=== PATIENT | male | born 1950 | race Caucasian/White ===

== ENCOUNTER → 2023-12-18 | Outpatient (CLI) | payer MEDICARE, OTHER ==
[~2023-12-18] MED LIST: Iohexol 300 - 100 ML VIAL IV ONE; NS 100 ML IV SCH
== END ==
LOC: COL.RAD 12:48
DX: C25.0 Malignant neoplasm of head of pancreas (principal); C78.1 Secondary malignant neoplasm of mediastinum; R91.1 Solitary pulmonary nodule
CPT/HCPCS: Q9967

== ENCOUNTER 2024-01-02 13:22 | Day surgery (SDC) | payer MEDICARE, OTHER ==
[~2024-01-02] VITALS: Ht 162.6 cm; Wt 50.8 kg
[~2024-01-02 13:22] MED LIST changes: -Iohexol 300 - 100 ML VIAL IV ONE; +LR 1,000 ML IV SCH; -NS 100 ML IV SCH; +Ondansetron 4 MG/2 ML VIAL IV PRN
--- NOTE | 2024-01-02 13:30 | NUR ---
PATIENT ADMITTED AMBULATORY TO [facility] AND IS ALERT AND ORIENTED. VOICES UNDERSTANDING OF PROCEDURE AND CONSENT SIGNED. STATES THAT HE JUST CAME FROM GETTING CHEMO PUMP TAKEN OFF AND PORT A CATH WAS LEFT ACCESSED TO BE USED FOR IVF DURING THIS PROCEDURE. DR. BRADLEY WAS INFORMED OF RECENT CHEMO INFUSION. HE WILL CHECK HIS NOTES TO IDENTIFY WAS CHEMO AGENT IS BEING USED PRIOR TO DOING PROCEDURE. 1345 WILL CONTINUE WITH PROCEDURE PER DR. BRADLEY AFTER REVIEWING MEDICATION THAT PATIENT IS RECEIVING AND JUST USE STANDARD PRECAUTIONS. IVF OF LR CONNECTED TO PORT AND GOOD BLOOD RETURN WAS NOTED.
[2024-01-02] MEDS ORDERED: fentaNYL 50 MCG/ML 2 ML VIAL ONE (14:08)
[2024-01-02] MEDS ORDERED: Lidocaine PF 2% (20 MG/ML) 5 ML VIAL ONE (14:08)
[2024-01-02] MEDS ORDERED: JARDIANCE10 PO (14:25)
[2024-01-02] MEDS ORDERED: LIPITOR20 MG PO (14:25)
[2024-01-02] MEDS ORDERED: OMEGA-3 FISH1000 MG PO (14:26)
[2024-01-02] MEDS ORDERED: VISION PLUS LU1 EACH PO (14:27)
[2024-01-02] MEDS ORDERED: MULTI VITAMINS1 TAB PO (14:27)
[2024-01-02] MEDS ORDERED: B-12 500 MCG PO (14:28)
[2024-01-02] MEDS ORDERED: PRILOSEC10 MG PO (14:29)
[2024-01-02] MEDS ORDERED: SENNA-LAX8.6 MG PO (14:29)
--- NOTE | 2024-01-02 14:40 | NUR ---
PATIENT RETURNS TO [facility] PER CART AND TRANSFERS WITH TWO PERSON ASSIST FROM CART TO RECLINER. IVF INFUSING. ALERT AND DENIES PAIN OR NAUSEA. VS 114/73-80-14-95% RA SATS, TEMP 98.0. CALL LIGHT IN REACH. REQUESTS COFFEE TO DRINK AND GIVEN. INFORMED PATIENT HE NEEDS TO FOLLOW FULL LIQUID DIET. REQUESTS PUDDING AND GIVEN. 1455 111/70-76-95% ON RA. DR. BRADLEY IN THE ROOM AND TALKS WITH THE PATIENT RE: FINGDING OF TODAY'S EGD. PATIENT VOICES UNDERSTANDING. WAS TOLD REPORT WILL BE SENT TO DR. MEDEROS FOR ANY FURTHER RECOMMENDTATIONS AND REFERRAL BACK TO [facility] IF NEEDED. 1510 114/71-81-96%. CONTINUES TO SIP ON COFFEE AND EAT PUDDING. WILL CONTACT SON WHEN PATIENT IS READY FOR DISCHARGE. 1520 PORT A CATH DEACCESSED AFTER BEING FLUSED WITH 10ML NS AND 500UNITS OF HEPARIN. BANDAID APPLIED TO SITE. 1530 ASSISTED PAIIENT WITH DRESSING. DISMISSAL INSTRUCTIONS GIVEN AND PATIENT VOICES UNDERSTANDING OF THESE. PROVIDED HANDOUT FOR FULL LIQUID DIET. 1533 PATIENT TAKEN TO PRIVATE VEHICLE DRIVEN BY SON PER WHEELCHAIR AND ASSISTED INTO CAR BY DEBORAH DAILEY WITH DISMISSAL INSTRUCTIONS IN HAND.
[2024-01-02 15:59] VITALS: BP 112/80; PULSE 74; TEMP 97.8
== END 2024-01-02 15:33 | disposition home or self-care (01) ==
LOC: SDCO 13:22
DX: C25.0 Malignant neoplasm of head of pancreas (principal); T18.3XXA Foreign body in small intestine, initial encounter; K31.5 Obstruction of duodenum; K31.89 Other diseases of stomach and duodenum; R63.0 Anorexia
CPT/HCPCS: J1644; J2704; J3010; J7120

== ENCOUNTER → 2024-04-17 | Outpatient (CLI) | payer MEDICARE, OTHER ==
[~2024-04-17] VITALS: Ht 167.6 cm; Wt 48.5 kg
[~2024-04-17] MED LIST changes: +B-12 500 MCG PO; +JARDIANCE10 PO; +LIPITOR20 MG PO; -LR 1,000 ML IV SCH; +MULTI VITAMINS1 TAB PO; +OMEGA-3 FISH1000 MG PO; -Ondansetron 4 MG/2 ML VIAL IV PRN; +PRILOSEC10 MG PO; +SENNA-LAX8.6 MG PO; +VISION PLUS LU1 EACH PO
[2024-04-17 10:50] VITALS: BP 119/79; PULSE 99; TEMP 97.7
[2024-04-17 11:55] VITALS: BP 108/76; PULSE 95
[2024-04-17 12:17] LABS: PLEURAL FLUID RBC 162000 /mm3 (0-0); PLEURAL FLUID WBC 1287 /mm3
[2024-04-17 12:18] LABS: PLEURAL FLUID APPEARANCE CLOUDY; PLEURAL FLUID COLOR RED
== END ==
LOC: COL.RAD 10:20
PROVIDERS: Internal Medicine
DX: C25.0 Malignant neoplasm of head of pancreas (principal); J94.8 Other specified pleural conditions

== ENCOUNTER → 2024-05-27 | Outpatient (CLI) | payer MEDICARE, OTHER ==
[~2024-05-27] VITALS: Ht 167.6 cm; Wt 51.8 kg
[2024-05-27 12:45] VITALS: BP 110/74; PULSE 84; TEMP 97.7
[2024-05-27 13:45] VITALS: BP 100/69; PULSE 93
--- NOTE | 2024-05-27 13:50 | NUR ---
RN PELON GORDON HAS ASSUMED CARE OF THIS PATIENT AT THIS TIME. BEDSIDE REPORT GIVEN. PATIENT HAS JUST RETURNED FROM THORAC[facility]ES[facility] AND CHEST X RAY.
[2024-05-27 14:13] LABS: PLEURAL FLUID RBC 2480000 /mm3 (0-0); PLEURAL FLUID WBC 1340 /mm3
[2024-05-27 14:22] LABS: PLEURAL FLUID APPEARANCE BLOODY; PLEURAL FLUID COLOR RED
== END ==
LOC: COL.RAD 09:46
PROVIDERS: Internal Medicine
DX: C25.0 Malignant neoplasm of head of pancreas (principal)

== ENCOUNTER 2024-06-05 10:29 | Emergency (ER) | payer MEDICARE ==
[~2024-06-05] VITALS: Ht 167.6 cm; Wt 50.0 kg
[~2024-06-05 10:29] MED LIST changes: +AMBIEN 5MG TABLE5 MG
[2024-06-05 10:42] VITALS: TEMP 98.4
[2024-06-05 11:21] LABS: INR 1.6 (0.8-3.0); PROTHROMBIN TIME 17.2 SECONDS (9.7-12.8)
[2024-06-05] MEDS ORDERED: NS 500 ML IV ONE (14:30)
[2024-06-05 14:33] LABS: MEAN CELL VOLUME 101 fl (80.0-100.0); MEAN CORPUSCULAR HGB CONC 30 g/dl (33.0-37.0); MEAN PLATELET VOLUME 9.7 fl (7.4-10.4); PLATELET COUNT 302 K/mm3 (130-400); RED BLOOD COUNT 2.73 M/mm3 (4.20-5.60); REDCELL DISTRIBUTION WIDTH-CV 21.1 % (11.5-14.5)
[2024-06-05 14:34] LABS: HEMATOCRIT 27.6 % (42.0-52.0); HEMOGLOBIN 8.4 g/dl (13.5-18.0); MEAN CORPUSCULAR HEMOGLOBIN 31 pg (27-31)
[2024-06-05 14:41] LABS: ALBUMIN 2.1 g/dL (3.4-4.8); BILIRUBIN,TOTAL 1.1 mg/dL (0.2-1.2); CALCIUM 8.2 mg/dL (8.4-10.2); CREATININE, serum 0.64 mg/dL (0.72-1.25); POTASSIUM 4.3 mEq/L (3.5-4.5); TOTAL PROTEIN 6.2 g/dl (6.2-8.1)
[2024-06-05 14:57] LABS: LYMPHOCYTE 8 % (20.0-51.0); NEUTROPHILS 92 % (42.0-75.2)
[2024-06-05 14:59] LABS: ANISOCYTOSIS 2+; HYPOCHROMIA 3+; PLATELET ESTIMATE NORMAL (NORMAL)
[2024-06-05 16:10] VITALS: BP 103/71; PULSE 109
[2024-06-06] MEDS ORDERED: ZOVIRAX400 MG PO (19:01)
[2024-06-06] MEDS ORDERED: RESTORIL 77.5 MG/CAP PO (19:01)
[2024-06-06] MEDS ORDERED: ZETIA 10MG TAB10 MG PO (19:02)
[2024-06-06] MEDS ORDERED: LOMOTIL 0.025 M1 TAB PO (19:02)
[2024-06-06] MEDS ORDERED: PRIL40 PO (23:45)
[2024-06-06] MEDS ORDERED: XALATAN EYE DROPS OD (23:52)
== END 2024-06-05 16:15 | disposition home or self-care (01) ==
LOC: COL.ER 10:29
PROVIDERS: Physician Assistant
DX: J90 Pleural effusion, not elsewhere classified (principal); C25.9 Malignant neoplasm of pancreas, unspecified; Z79.899 Other long term (current) drug therapy
CPT/HCPCS: J7040